=== PATIENT | male | born 1955 | race Caucasian/White ===

== ENCOUNTER 2019-08-10 22:33 | Emergency (ER) | payer OTHER ==
[~2019-08-10] VITALS: Ht 172.7 cm; Wt 95.3 kg
[2019-08-11 00:25] LABS: BASOPHIL % 0.2 % (0-2); RED CELL DISTRIBUTION WIDTH 13.1 % (11.5-14.5)
[2019-08-11 00:32] LABS: PLATELET COUNT 89 x10^3mcL (130-400)
[2019-08-11 00:48] LABS: ALKALINE PHOSPHATASE 34 U/L (46-116); ALT/SGPT 31 U/L (16-63); AST/SGOT 13 U/L (15-37); BILIRUBIN TOTAL 0.6 mg/dL (0.20-1.00); CARBON DIOXIDE 13.5 mmol/L (21-32); CHLORIDE SERUM 121 mmol/L (98-107); CREATININE SERUM 0.5 mg/dL (0.7-1.3); GFR1 > 60 mL/min; GLUCOSE SERUM 307 mg/dL (74-106); SODIUM SERUM 147 mmol/L (136-145)
[2019-08-11 01:05] LABS: ALBUMIN 1.1 g/dL (3.4-5.0); TOTAL PROTEIN, SERUM 2.6 g/dL (6.4-8.2)
[2019-08-11 01:07] LABS: POTASSIUM SERUM 1.7 mmol/L (3.5-5.1)
[2019-08-11 01:08] LABS: CALCIUM 2.8 mg/dL (8.5-10.1)
[2019-08-11 01:50] LABS: CALCIUM 8.1 mg/dL (8.5-10.1); CREATININE SERUM 1.6 mg/dL (0.7-1.3)
[2019-08-11 02:21] LABS: BASOPHIL % 1.1 % (0-2); PLATELET COUNT 200 x10^3mcL (130-400); RED CELL DISTRIBUTION WIDTH 13.3 % (11.5-14.5)
[2019-08-11 03:23] VITALS: BP 146/77
== END 2019-08-11 03:23 | disposition home or self-care (01) ==
LOC: ED 22:33
PROVIDERS: Emergency Medicine
DX: E11.9 Type 2 diabetes mellitus without complications (principal); M10.9 Gout, unspecified
CPT/HCPCS: 82962; J1815; J3480; J7040; Q0092